=== PATIENT | female | born 1945 | race Caucasian/White ===

== ENCOUNTER 2020-01-26 13:15 | Inpatient (IN) | payer MEDICARE ==
[~2020-01-26] VITALS: Ht 167.6 cm; Wt 86.0 kg
[2020-01-26] MEDS ORDERED: LEVOFLOXACIN750 MG PO (13:35)
[2020-01-26] MEDS ORDERED: ZESTRIL5 M1 PO (13:35)
[2020-01-26] MEDS ORDERED: METOPROLOL SUCC25 M1 PO (13:37)
[2020-01-26] MEDS ORDERED: PROBIOTIC1 EAC1 PO (13:38)
[2020-01-26] MEDS ORDERED: ASPIRIN 32325 MG/TAB PO (13:38)
[2020-01-26] MEDS ORDERED: VITAMIN C PUR1000 MG PO (13:38)
[2020-01-26] MEDS ORDERED: NATURE'S BLEND400 IU PO (13:39)
[2020-01-26 13:48] VITALS: BP 143/85
[2020-01-26 18:17] VITALS: BP 125/68
[2020-01-27 05:41] VITALS: BP 128/85
[2020-01-27 06:06] LABS: BASO # 0.1 (0.02-0.10); EOS # 0.3 (0.04-0.40); EOS % 3.3 % (1.0-5.0); HEMATOCRIT 34.3 % (37.0-47.0); HEMOGLOBIN 10.9 g/dL (12.5-16.0); LYMPH# 1.3 (1.50-4.00); MEAN CELL VOLUME 93 fl (78-100); MEAN CORPUSCULAR HEMOGLOBIN 30 pg (27-31); MEAN CORPUSCULAR HGB CONC 32 g/dL (33-37); MEAN PLATELET VOLUME 9.7 fl (7.4-10.4); MONO # 0.7 (0.20-0.80); NEU # 6.1 (1.40-6.50); PLATELET COUNT 344 K/mm3 (130-400); RED BLOOD COUNT 3.69 M/mm3 (4.10-5.30); RED CELL DISTRIBUTION WIDTH 14.6 % (11.5-14.5); WHITE BLOOD COUNT 8.4 K/mm3 (4.8-10.8)
[2020-01-27 06:17] LABS: ALBUMIN 3.1 g/dL (3.4-4.8); POTASSIUM 4.5 mmol/L (3.5-5.1)
[2020-01-27 06:18] LABS: CALCIUM 8.7 mg/dL (8.3-10.5)
[2020-01-27 06:19] LABS: TOTAL PROTEIN 6.1 g/dL (6.2-8.1)
[2020-01-27 17:05] VITALS: BP 129/83
[2020-01-28 05:25] VITALS: BP 143/80
[2020-01-28 17:12] VITALS: BP 138/77
[2020-01-29 05:43] VITALS: BP 129/75
[2020-01-29 17:05] VITALS: BP 114/74
[2020-01-30 05:59] VITALS: BP 129/78
[2020-01-30 18:00] VITALS: BP 106/74
[2020-01-31 05:45] VITALS: BP 113/71
[2020-01-31 17:23] VITALS: BP 119/86
[2020-02-01 05:23] VITALS: BP 150/77
[2020-02-01] MEDS ORDERED: METOPROLOL SUCC25 M1 PO (10:24)
[2020-02-01] MEDS ORDERED: ZESTRIL5 M1 PO (10:24)
== END 2020-02-01 10:31 | disposition home or self-care (01) | DRG 947 ==
LOC: MED/SURG 13:15
PROVIDERS: Nurse Practitioner; ADMIT Nurse Practitioner Family
DX: R53.81 Other malaise (principal); A41.9 Sepsis, unspecified organism; R65.21 Severe sepsis with septic shock; N13.2 Hydronephrosis with renal and ureteral calculous obstruction; N17.9 Acute kidney failure, unspecified; I50.9 Heart failure, unspecified; I48.91 Unspecified atrial fibrillation; D69.6 Thrombocytopenia, unspecified; K44.9 Diaphragmatic hernia without obstruction or gangrene; R74.01 Elevation of levels of liver transaminase levels; Z86.73 Personal history of transient ischemic attack (TIA), and cerebral infarction without residual deficits; Z88.0 Allergy status to penicillin; R49.0 Dysphonia